=== PATIENT | female | born 1975 | race Caucasian/White ===

== ENCOUNTER → 2023-10-11 14:27 | Outpatient (REF) | payer BC, SELFPAY | LOC: WDC 14:27 | PROVIDERS: ATTENDING PHYSICIAN Family Medicine | DX: Z12.31 Encounter for screening mammogram for malignant neoplasm of breast (principal) | CPT/HCPCS: 77063; 77067 ==

== ENCOUNTER → 2023-10-17 06:34 | Outpatient (REF) | payer BC, SELFPAY | LOC: RAD 06:34 | PROVIDERS: ATTENDING PHYSICIAN Family Medicine | DX: E04.1 Nontoxic single thyroid nodule (principal) | CPT/HCPCS: 76536 ==

== ENCOUNTER 2024-02-16 17:25 | Emergency (ER) | payer BC, SELFPAY ==
[2024-02-16 17:27] VITALS: BP 151/84
[2024-02-16 18:05] LABS: % Basophils 0.7 % (0-2); % Eosinophils 0.7 % (0-6); % Immature Granulocytes 0.1 % (0-0.5); % Lymphocytes 40.1 % (20.5-51.1); % Neutrophils 53.4 % (42.2-75.2); Absolute Basophils 0.1 10^3/uL (0-0.2); Absolute Eosinophils 0.1 10^3/uL (0-0.7); Absolute Lymphocytes 2.9 10^3/uL (1.2-3.4); Absolute Monocytes 0.4 10^3/uL (0.1-0.6); Absolute Neutrophils 3.8 10^3/uL (1.4-6.5); Hematocrit 41.5 % (37.0-47.0); Hemoglobin 14.6 g/dL (12.0-16.0); Mean Corp Hgb Conc. 35.2 g/dL (33.0-37.0); Mean Corpuscular Hgb 30.2 pg (27.0-31.0); Mean Corpuscular Volume 85.9 fL (81.0-99.0); Nucleated Red Blood Cells % 0 %; Platelet Count 320 10^3/uL (130-400); Red Blood Cell Count 4.83 10^6/uL (4.20-5.40); Red Cell Dist. Width 12.3 % (11.5-14.5); White Blood Cell Count 7.2 10^3/uL (4.8-10.8)
[2024-02-16 18:06] LABS: Urine Albumin Negative (Neg - Trace); Urine Bilirubin Negative (Negative); Urine Character Clear (Clear); Urine Color Yellow; Urine Glucose Negative (Negative); Urine Ketone Negative (Negative); Urine Leukocyte Negative (Negative); Urine Nitrite Negative (Negative); Urine Occult Blood Negative (Negative); Urine Specific Gravity 1.015 (<1.030); Urine Urobilinogen Negative (Neg - 1+)
[2024-02-16 18:18] LABS: ALT (SGPT) 26 U/L (0-35); AST (SGOT) 40 U/L (14-36); Albumin 4.4 g/dl (3.5-5.0); Alkaline Phosphatase 63 U/L (38-126); Blood Urea Nitrogen 15 mg/dl (7-17); Calcium 9.6 mg/dl (8.4-10.2); Carbon Dioxide 26 mmol/L (22-30); Chloride 103 mmol/L (98-107); Glucose 113 mg/dl (70-99); Lipase 109 U/L (23-300); Potassium 4.3 mmol/L (3.5-5.1); Sodium 135 mmol/L (135-145); Total Bilirubin 0.8 mg/dl (0.2-1.3); Total Protein 6.7 g/dl (6.3-8.2); eGFR > 60.00
[2024-02-16] MEDS: NSS 1000 IV (18:40)
[2024-02-16 18:56] LABS: HCG, Serum Qualitative Screen Negative
--- NOTE | 2024-02-16 19:01 | ED.GENMED ---
History of Present Illness
General
Chief Complaint: Flank Pain
Source: patient and family
Exam Limitations: none
Time Seen by Provider: 02/16/24 18:03
Nursing documentation reviewed up to this point in time: agreed with
History of Present Illness
History of Present Illness:
48-year-old female presenting to the emergency department today with concerns of right-sided flank discomfort that started abruptly just prior to arrival when at home. Denies associated nausea vomiting changes in bowel movements or urination.
Denies similar symptoms in the past. Improved since. Denies any vaginal bleeding or discharge.
Past History
Past History
ED Past Medical History: Other (Lumbar disc disease)
ED Past Surgical History: None
Social History
Tobacco: Non-smoker
Alcohol: None
Personal:
Living: with family
Employment: Employed
Review of Systems
Review of Systems
Allergies reviewed?: Yes
All Other Systems: ROS reviewed and negative except as documented in HPI and ROS
Phy Exam
Physical Exam
Physical Exam:
GENERAL: Alert , in no apparent distress
EYE: pupils equal and reactive
NECK: Supple, no significant adenopathy.
ENT: o/p clr, mmm.
CARDIAC: Regular rate and rhythm .
LUNGS: Clear breath sounds bilaterally, no acute respiratory distress, no wheezes/rales/rhonchi
ABDOMEN: Soft, without focal tenderness, no r/g, no cvat
NEUROLOGICAL: Alert and oriented, no focal neuro deficits
SKIN: Warm and dry, skin intact.
MUSCULOSKELETAL: No edema, well perfused.
PSYCH: Normal and appropriate interaction.
Course
Orders/Labs/Results
Orders:
Orders
02/16/24 17:56
Complete Blood Count/With Diff Urgent
Comprehensive Metabolic Panel Urgent
HCG, Serum Qualitative Screen Urgent
Comment: ADD ON
Lipase Urgent
Urinalysis Reflex To Culture Urgent
Date Specimen was Collected: 02/16/24
Time Specimen was Collected: 17:31
02/16/24 18:35
CT Abd/pel Without Iv Or Oral Urgent
Comment:
Reason For Exam: right flank pain
0.9% Sodium Chloride 1000 ml [Nss] 1,000 ml IV BOLUS
02/16/24 18:40
Add On- LAB Urgent
Tests Added?: hcg qual serum
Abnormal Lab Results
02/16/24
17:56
Glucose 113 H mg/dl
(70-99)
AST 40 H U/L
(14-36)
02/16/24 17:56
02/16/24 17:56
Vital Signs
Initial and Last Documented VS:
Initial Vital Signs
Temp Pulse Resp BP Pulse Ox
98.3 F 70 22 151/84 100
02/16/24 17:27 02/16/24 17:27 02/16/24 17:27 02/16/24 17:27 02/16/24 17:27
Last Documented Vital Signs
Temp Pulse Resp BP Pulse Ox
98.3 F 54 18 134/84 97
02/16/24 17:27 02/16/24 20:29 02/16/24 20:29 02/16/24 20:29 02/16/24 20:29
MDM/Problems Addressed
MDM/Problems Addressed:
48-year-old female presenting to the emergency department today with concerns of right-sided flank pain abruptly prior to arrival. Upon arrival vital signs are normal patient claims symptoms have improved no vomiting no urinary symptoms no vaginal
symptoms. Plan for CT scan for further assessment potential kidney stone. CT without evidence of acute pathology there was an appendicolith patient was reassessed with no ongoing right lower quadrant tenderness. Making early appendicitis very
unlikely. This consideration was explained and she demonstrated understanding and that if symptoms are worsening she would need to return. Otherwise incidental finding on the liver was explained and she will follow-up for this. Otherwise stable
for outpatient management return precautions given.
*Critical Care Note
Total Time (30-74mins, 75-104mins- exclusive of procedures): Not Applicable
ED Attending Note
-
Portions of this chart may have been created with voice recognition software.� Occasional wrong word or��sound alike� substitutions may have occurred due to the inherent limitations of voice recognition software.
Discharge Plan
Departure
Patient Disposition: Home (Routine Discharge)
Date of Disposition: 02/16/24
Time of Disposition: 21:17
Patient with high blood pressure during this ER visit?: No
Condition: Good
Covid-19: Not Applicable
Discharge Problem:
Acute right flank pain
Instructions: Flank Pain (DC)
Prescriptions:
No Action
cetirizine [Zyrtec] 10 MG tablet
10 mg PO DAILY
norgestimate-ethinyl estradiol [Ortho-Cyclen (28)] 1 EACH tablet
1 ea PO DAILY
cyanocobalamin (vitamin B-12) 1,000 MCG tablet
1,000 mcg PO DAILY
rosuvastatin [Crestor] 5 MG tablet
5 mg PO DAILY
duloxetine 60 MG capsule,delayed release(DR/EC)
90 mg PO DAILY
yn-ybf-YE-Xj-Pa-gktmyry-lutein 1 EACH tablet
1 tab PO DAILY
Referrals:
Mat Carroll DO [Family Provider] -
Activity Restrictions/Additional Instructions:
You came to the emergency department today with concerns of flank pain. Here there was no evidence of emergent findings. You did have a small lesion in your liver that should follow-up with your primary care doctor for potential repeated imaging
in the future. Otherwise you also had a small stone in your appendix. This is unlikely to be causing any emergent symptoms but please return for any progressive symptoms.
Interventions
Interventions:
*Risk Screen - Suicide Last Done: 02/16/24 18:43
*General Assessment Last Done: 02/16/24 18:43
*Neglect/Abuse Screening Last Done: 02/16/24 18:43
ED- Fall Risk Assessment Last Done: 02/16/24 21:42
*Nursing Disposition Last Done: 02/16/24 21:42
CX-Qgvzsq-Vmpbaqhbdf Assessment Last Done: 02/16/24 18:43
ED-Female Genitourinary Assessment Last Done: 02/16/24 18:45
Discharge Date and Time
Discharge Date/Time: 02/16/24 21:43
Print Language: BELARUSIAN
[2024-02-16 20:29] VITALS: BP 134/84
== END 2024-02-16 21:43 | disposition home or self-care (01) ==
LOC: EMR 17:25
PROVIDERS: Emergency Medicine; EMERGENCY PHYSICIAN Emergency Medicine; FAMILY PHYSICIAN Family Medicine
DX: R10.9 Unspecified abdominal pain (principal)
CPT/HCPCS: 99284; 96360; 74176; 80053; 81003; 83690; 84703; 85025

== ENCOUNTER → 2025-02-25 15:20 | Outpatient (REF) | payer BC, SELFPAY | LOC: WDC 15:20 | PROVIDERS: ATTENDING PHYSICIAN Family Medicine | DX: Z12.31 Encounter for screening mammogram for malignant neoplasm of breast (principal) | CPT/HCPCS: 77063; 77067 ==

== ENCOUNTER → 2025-04-10 13:16 | Outpatient (REF) | payer BC, SELFPAY | LOC: RAD 13:16 | PROVIDERS: ATTENDING PHYSICIAN Family Medicine | DX: R22.2 Localized swelling, mass and lump, trunk (principal) | CPT/HCPCS: 76604 ==